=== PATIENT | female | born 1950 | race Two or more races ===

== ENCOUNTER 2024-03-07 13:16 | Emergency (ER) | payer OTHER ==
[~2024-03-07] VITALS: Ht 167.6 cm; Wt 86.2 kg
[2024-03-07] MEDS ORDERED: VERELAN PM100 MG (13:50)
[2024-03-07] MEDS ORDERED: HUMALOG MI100 UNIT/2 SQ (13:50)
[2024-03-07] MEDS ORDERED: COZAAR25 MG (13:50)
[2024-03-07] MEDS ORDERED: SIMVASTATIN5 MG (13:50)
[2024-03-07] MEDS ORDERED: ORPHENADRINE CITRATE 30 MG/ML AMPUL ONE (17:07)
[2024-03-07] MEDS ORDERED: KETOROLAC TROMETHAMINE 60 MG VIAL IM ONE (17:07)
[2024-03-07] MEDS ORDERED: KETOROLAC TROMETHAMINE 30 MG VIAL IM ONE (17:15)
[2024-03-07] MEDS ORDERED: ORPHENADRINE CITRATE 30 MG/ML AMPUL IM ONE (17:15)
[2024-03-07 17:26] LABS: HEMOGLOBIN 13.5 g/dL (12.0-15.00); MEAN CELL VOLUME 88.2 fL (80.00-100.00); MEAN CORPUSCULAR HEMOGLOBIN 29.1 pg (27.00-32.0); MEAN CORPUSCULAR HGB CONC 32.9 g/dl (32.0-36.0); PLATELET COUNT 245 K/uL (150-450); RED BLOOD COUNT 4.64 M/uL (4.00-6.00); RED CELL DISTRIBUTION WIDTH 15.1 % (11.5-14.5)
[2024-03-07 17:43] LABS: ALBUMIN 3.9 gm/dL (3.4-5.0); BILIRUBIN TOTAL 0.52 mg/dL (0.3-1.2); CALCIUM 9.9 mg/dL (8.5-10.1); CREATININE SERUM 0.67 mg/dL (0.55-1.02); GFR 85.8; GLOBULINA 3.9 G/DL (2.4-3.5); POTASSIUM 4.29 mEq/L (3.5-5.1); TOTAL PROTEIN 7.8 gm/dL (6.4-8.2)
[2024-03-07 17:54] LABS: URINE APPEARANCE Clear; URINE BILIRRUBIN Negative (NEGATIVE); URINE BLOOD Negative; URINE COLOR Yellow; URINE GLUCOSE Negative (NEGATIVE); URINE KETONE Trace (NEGATIVE); URINE LEUKOCYTE Negative; URINE NITRATE Negative; URINE PROTEIN Negative (NEGATIVE); URINE UROBILINOGEN 0.2 E.U./dl
[2024-03-07 17:57] LABS: URINE BACTERIA 578.2 uL (0.0-1933); URINE EPITHELIAL CELLS 39.8 uL (0.0-38.8); URINE RBC 2.9 uL (0.0-20.8); URINE WBC 7.2 uL (0.0-23.2)
[2024-03-07] MEDS ORDERED: INTESTINEX680 M1 PO (20:23)
[2024-03-07] MEDS ORDERED: DICY20TA PO (20:23)
[2024-03-07] MEDS ORDERED: PERCOGESIC EXT1 EACH PO (20:23)
[2024-03-07] MEDS ORDERED: CIPRO500 MG PO (20:23)
[2024-03-07] MEDS ORDERED: PEPCID AC20 MG PO (20:23)
[2024-03-07] MEDS ORDERED: METRONIDAZOLE500 MG PO (20:23)
== END 2024-03-07 21:59 ==
LOC: ER 13:18
PROVIDERS: Nurse Practitioner Family
DX: K57.92 Diverticulitis of intestine, part unspecified, without perforation or abscess without bleeding (principal); K80.20 Calculus of gallbladder without cholecystitis without obstruction; E11.9 Type 2 diabetes mellitus without complications; Z79.4 Long term (current) use of insulin; I10 Essential (primary) hypertension; Z91.018 Allergy to other foods
CPT/HCPCS: 36415; 74176; 96372; 99284; J1885; J2360